=== PATIENT | male | born 1975 | race Caucasian/White ===

== ENCOUNTER 2017-12-07 20:52 | Emergency (ER) | payer BC, OTHER ==
[~2017-12-07] VITALS: Ht 175.3 cm; Wt 84.8 kg
[2017-12-07 21:06] VITALS: BP_SYST 144
[2017-12-07] MEDS ORDERED: SULFAMETHOXAZOLE/TRIMETHOPR DS 1 TABLET PO ONE (22:15)
[2017-12-07 22:33] VITALS: BP_SYST 144
== END 2017-12-07 22:33 | disposition home or self-care (01) ==
LOC: SED 20:52
DX: B99.8 Other infectious disease (principal); R03.0 Elevated blood-pressure reading, without diagnosis of hypertension
CPT/HCPCS: 99283